=== PATIENT | female | born 1990 | race African-American/Black ===

== ENCOUNTER 2018-05-06 05:50 | Emergency (ER) | payer OTHER ==
[~2018-05-06] VITALS: Ht 154.9 cm; Wt 69.4 kg
[2018-05-06 06:25] LABS: ABSOLUTE NEUTROPHILS 8.6 thou/uL (1.4-8.2); BASOPHILS 0.5 % (0.0-2.0); EOSINOPHILS 0.4 % (0.0-3.0); HEMATOCRIT 40.8 % (37.0-47.0); HEMOGLOBIN 13.4 gm/dL (12.0-15.0); LYMPHOCYTES 16.4 % (24.0-44.0); MCH 26.6 pg (26.0-34.0); MCHC 32.7 g/dL (28.0-37.0); MCV 81.1 fL (80.0-100.0); MONOCYTES 7.5 % (1.0-8.0); PLATELET COUNT 224 thou/uL (150-400); POLYS 75.2 % (36.0-66.0); RBC 5.03 mil/uL (4.20-5.00); RDW 12.9 % (10.5-14.5); WBC 11.4 thou/uL (4.0-11.0)
[2018-05-06 06:36] LABS: CALCIUM 9.4 mg/dL (8.5-10.1); CREATININE 0.6 mg/dL (0.6-1.0)
[2018-05-06 06:41] LABS: TOTAL BILIRUBIN 0.4 mg/dL (<0.1-1.0); TOTAL PROTEIN 7.9 g/dL (6.4-8.2)
[2018-05-06 07:12] LABS: URINE CLARITY CLEAR; URINE COLOR YELLOW
[2018-05-06 07:13] LABS: URINE BILIRUBIN NEGATIVE (Negative); URINE BLOOD NEGATIVE (Negative); URINE GLUCOSE-RANDOM* NEGATIVE (Negative); URINE KETONES 2+ (Negative); URINE LEUKOCYTES-REFLEX NEGATIVE (Negative); URINE NITRITE-REFLEX NEGATIVE (Negative); URINE PROTEIN (DIPSTICK) NEGATIVE (Negative); URINE SPECIFIC GRAVITY 1.025 (1.005-1.035)
[2018-05-06] MEDS ORDERED: REGLAN 10 MG TA10 MG PO (08:01)
[2018-05-06 08:20] VITALS: BP 93/57
== END 2018-05-06 08:21 | disposition home or self-care (01) ==
LOC: ER 05:50
PROVIDERS: Emergency Medicine
DX: O99.611 Diseases of the digestive system complicating pregnancy, first trimester (principal); Z3A.01 Less than 8 weeks gestation of pregnancy; K52.9 Noninfective gastroenteritis and colitis, unspecified; Z91.013 Allergy to seafood

== ENCOUNTER 2019-01-20 04:03 | Emergency (ER) | payer OTHER ==
[~2019-01-20] VITALS: Ht 157.5 cm; Wt 61.7 kg
[~2019-01-20 04:03] MED LIST: REGLAN 10 MG TA10 MG PO
[2019-01-20] MEDS ORDERED: NAPROXEN375 MG PO (05:57)
[2019-01-20] MEDS ORDERED: METHOCARBAMOL500 M2 PO (05:57)
[2019-01-20 06:00] VITALS: BP 121/68
== END 2019-01-20 06:00 | disposition home or self-care (01) ==
LOC: ER 04:03
DX: S06.0X0A Concussion without loss of consciousness, initial encounter (principal); S13.4XXA Sprain of ligaments of cervical spine, initial encounter; F17.210 Nicotine dependence, cigarettes, uncomplicated; Z91.013 Allergy to seafood; W20.8XXA Other cause of strike by thrown, projected or falling object, initial encounter; Y93.89 Activity, other specified; Y92.89 Other specified places as the place of occurrence of the external cause; Y99.0 Civilian activity done for income or pay

== ENCOUNTER 2019-01-23 18:09 | Emergency (ER) | payer OTHER ==
[~2019-01-23] VITALS: Ht 157.5 cm; Wt 61.7 kg
[~2019-01-23 18:09] MED LIST changes: +METHOCARBAMOL500 M2 PO; +NAPROXEN375 MG PO
[2019-01-23 20:15] VITALS: BP 124/73
== END 2019-01-23 20:15 | disposition home or self-care (01) ==
LOC: ER 18:09
DX: S13.4XXA Sprain of ligaments of cervical spine, initial encounter (principal); S06.0X0A Concussion without loss of consciousness, initial encounter; F17.210 Nicotine dependence, cigarettes, uncomplicated; Z91.013 Allergy to seafood; W20.8XXA Other cause of strike by thrown, projected or falling object, initial encounter; Y92.89 Other specified places as the place of occurrence of the external cause; Y93.89 Activity, other specified; Y99.8 Other external cause status